=== PATIENT | female | born 1970 | race Caucasian/White ===

== ENCOUNTER → 2018-01-06 14:23 | Outpatient (CLI) | payer OTHER, SELFPAY ==
[2018-01-06 15:52] LABS: TSH (W/Ref FT4) 5.19 uIU/mL (0.358-3.74)
[2018-01-06 16:15] LABS: FREE T4 1.13 ng/dL (0.76-1.46)
== END ==
PROVIDERS: PCP Family Medicine; Visit Provider Nurse Practitioner Family
DX: N92.0 Excessive and frequent menstruation with regular cycle (principal)
CPT/HCPCS: 36415; 84439; 84443

== ENCOUNTER 2018-01-21 00:19 | Outpatient (CLI) | payer OTHER, SELFPAY ==
--- NOTE | 2018-01-21 14:50 | DI.US_ITS ---
SYMPTOMS/DIAGNOSIS: MENORRHAGIA, N92.0, VERY HEAVY AFTER 10 MONTHS OF NO BLEEDING PELVIC ULTRASOUND: Transabdominal and transvaginal exams were performed. The uterus measures 12 x 5.9 x 7.1 cm. The fundus of the uterus is not well seen on the transvaginal images. The endometrial stripe measures 8 mm in thickness. No fibroids are identified. Two small cysts are seen on the right ovary. The left ovary was not identified. A small amount of fluid is seen around the right ovary. There is no hydronephrosis. IMPRESSION: Limited visualization of the fundus of the uterus. Uterus is enlarged. No focal fibroid or focal endometrial abnormality is seen.
== END 2018-01-21 00:39 ==
PROVIDERS: PCP Family Medicine; Visit Provider Nurse Practitioner Family
DX: N92.0 Excessive and frequent menstruation with regular cycle (principal); N85.2 Hypertrophy of uterus
CPT/HCPCS: 76830; 76856

== ENCOUNTER 2018-02-14 12:24 | Outpatient (REF) | payer OTHER, SELFPAY ==
--- NOTE | 2018-02-14 09:50 | ENDOMET_PTH ---
PATIENT: Kemi Johnson LOC: [facility] U#:[id number] AGE/SX: 47/F ROOM: RE02/14/[address]: Evangelist Wing MD : 1970 BED: DIS: 02/14/2018 SPEC #: [id number] RECD: 02/14/18 12:57 STATUS: YESENIA REQ #: [id number] AMBER: 02/14/18 09:[address]: Evangelist Wing DEPT: Surgical Specimen RECD BY: Cindy Gordon ENTERED: 02/14/18 12:58 SP TYPE: Endomet OTHR DR: Elham Boyd MD Tissues: 1 - ENDOMETRIUM BX/KIERRA Procedures: GROSS AND MICRO LEVEL 4 Comments: [id number]
== END 2018-02-14 12:44 ==
LOC: LBN 12:24
PROVIDERS: PCP Family Medicine; Visit Provider Obstetrics & Gynecology
DX: N92.0 Excessive and frequent menstruation with regular cycle (principal)
CPT/HCPCS: 88305

== ENCOUNTER 2018-03-24 07:41 | Outpatient (CLI) | payer OTHER, SELFPAY ==
[2018-03-24 08:45] LABS: Iron 85 ug/dL (50-175)
[2018-03-24 08:54] LABS: Ferritin 72 ng/mL (8-388); TSH 4.22 uIU/mL (0.358-3.74)
== END 2018-03-24 08:01 ==
PROVIDERS: PCP Family Medicine; Visit Provider Family Medicine
DX: E03.9 Hypothyroidism, unspecified (principal); G25.81 Restless legs syndrome
CPT/HCPCS: 36415; 82728; 83540; 84443

== ENCOUNTER 2018-06-28 11:08 | Outpatient (CLI) | payer OTHER, SELFPAY ==
[2018-06-28 16:04] LABS: TSH 0.37 uIU/mL (0.358-3.74)
== END 2018-06-28 11:28 ==
PROVIDERS: PCP Family Medicine; Visit Provider Family Medicine
DX: E03.9 Hypothyroidism, unspecified (principal)
CPT/HCPCS: 36415; 84443

== ENCOUNTER 2019-03-13 16:28 | Outpatient (REF) | payer OTHER, SELFPAY ==
--- NOTE | 2019-03-13 15:00 | PAPFT_PTH ---
PATIENT: Kemi Johnson LOC: [facility] U#:[id number] AGE/SX: 48/F ROOM: RE03/13/[address]: Elham Boyd MD : 1970 BED: DIS: 03/13/2019 SPEC #: [id number] RECD: 03/14/19 12:53 STATUS: YESENIA REBrian #: [id number] AMBER: 03/13/19 15:[address]: Elham Boyd DEPT: [facility] Cytology RECD BY: Cindy Gordon Tissues: 1 - CX/ENDOCX FOR PAP SMEARS Procedures: PAP THIN PREP/UVM Screening HPV DNA PROBE Comments: [id number]
== END 2019-03-13 16:48 ==
LOC: LBN 16:28
PROVIDERS: PCP Family Medicine; Visit Provider Family Medicine
DX: Z12.4 Encounter for screening for malignant neoplasm of cervix (principal); Z11.51 Encounter for screening for human papillomavirus (HPV)
CPT/HCPCS: 88142; 87624

== ENCOUNTER 2019-03-15 02:33 | Outpatient (CLI) | payer OTHER, SELFPAY ==
[2019-03-15 09:52] LABS: ALT 77 U/L (14-59); AST 36 U/L (15-37); Albumin 3.8 g/dL (3.4-5.0); Alkaline Phosphatase 80 U/L (46-116); Anion Gap 8.8 mmol/L (3-11); BUN 13 mg/dL (7-18); Bilirubin, Total 0.7 mg/dL (0.2-1.0); CO2 29.2 mmol/L (21.0-32.0); CREATININE 0.81 mg/dL (0.55-1.02); Calcium 8.8 mg/dL (8.5-10.1); Calculated LDL 93 mg/dL; Chloride 104 mmol/L (98-107); Cholesterol 152 mg/dL (50-200); Glucose 99 mg/dL (70-100); HDL Cholesterol 42 mg/dL (40-60); Potassium 4.1 mmol/L (3.5-5.1); Sodium 142 mmol/L (136-145); TSH 1.47 uIU/mL (0.36-3.74); Total Protein 7.3 g/dL (6.4-8.2); Triglyceride 89 mg/dL (30-150)
== END 2019-03-15 02:53 ==
PROVIDERS: PCP Family Medicine; Visit Provider Family Medicine
DX: E03.9 Hypothyroidism, unspecified (principal); R03.0 Elevated blood-pressure reading, without diagnosis of hypertension; Z13.220 Encounter for screening for lipoid disorders
CPT/HCPCS: 36415; 80053; 80061; 84443

== ENCOUNTER 2019-04-11 01:01 | Outpatient (CLI) | payer OTHER, SELFPAY ==
--- NOTE | 2019-04-11 15:55 | DI.MAMMO_ITS ---
EXAM: MAMMO SCREENING CLINICAL HISTORY: screening Z12.39 TECHNIQUE: Mammograms were interpreted according to the usual protocol including computer analysis w Spot[employer] CAD system, tomosynthesis and C-view imaging. COMPARISON: No 2012 through 2016. FINDINGS: The breasts are composed of scattered fibroglandular densities, breast density, category B. An islan d of breast tissue is again noted in the upper outer quadrant of the right breast. No suspicious mas ses or suspicious microcalcifications are seen. Patient is noted to be status post breast reduction. IMPRESSION: BI-RADS category 2, negative mammogram with benign findings. Yearly screening mammography is recomme nded. BI-RADS Cat 2 - Benign Findings. Breast Density - Category B - Scattered areas of fibroglandular density.
== END 2019-04-11 01:21 ==
PROVIDERS: PCP Family Medicine; Visit Provider Family Medicine
DX: Z12.31 Encounter for screening mammogram for malignant neoplasm of breast (principal)
CPT/HCPCS: 77063; 77067

== ENCOUNTER 2020-08-02 02:17 | Outpatient (CLI) | payer OTHER, SELFPAY ==
[2020-08-02 08:17] LABS: ALT 31 U/L (14-59); AST 17 U/L (15-37); Albumin 3.9 g/dL (3.4-5.0); Alkaline Phosphatase 80 U/L (46-116); Anion Gap 9.3 mmol/L (3-11); BUN 15 mg/dL (7-18); Bilirubin, Total 0.5 mg/dL (0.2-1.0); CO2 29.7 mmol/L (21.0-32.0); CREATININE 0.8 mg/dL (0.55-1.02); Calcium 8.9 mg/dL (8.5-10.1); Chloride 104 mmol/L (98-107); Glucose 114 mg/dL (74-106); Potassium 4.1 mmol/L (3.5-5.1); Sodium 143 mmol/L (136-145); TSH 0.45 uIU/mL (0.36-3.74); Total Protein 7.2 g/dL (6.4-8.2)
== END 2020-08-02 02:18 | disposition home or self-care (01) ==
LOC: LBO 02:17
PROVIDERS: PCP Family Medicine; Visit Provider Family Medicine
DX: E03.9 Hypothyroidism, unspecified (principal); R74.01 Elevation of levels of liver transaminase levels
CPT/HCPCS: 36415; 80053; 84443

== ENCOUNTER 2020-10-09 01:41 | Outpatient (CLI) | payer OTHER, SELFPAY ==
--- NOTE | 2020-10-09 08:45 | DI.MAMMO_ITS ---
Exam(s) MAMMO SCREENING EXAM: MAMMO SCREENING CLINICAL HISTORY: screening,z12.39 TECHNIQUE: Bilateral full field digital CC and MLO mammographic images were obtained with 3D tomosyn thesis and utilizing computer aided detection (CAD). COMPARISON: Available for comparison. FINDINGS: Masses/Architectural Distortion: None seen. Stable asymmetric breast tissue is seen in the upper oute r quadrant of the right breast. There is a stable asymmetric density in the outer central left breas t. Microcalcifications: No suspicious pleomorphic-type are seen. Skin Thickening/Nipple Retraction: None. IMPRESSION: 1. No significant interval change with no specific features of malignancy noted. 2. Unless there is more urgent need, screening mammography is recommended, as per [employer] guidelines. BI-RADS Category 2 - Benign Findings Breast Density - Category B - Scattered areas of fibroglandular density Breast density category C or D implies that the patient has dense breast tissue. Dense breast tissue is very common and is not abnormal but dense breast tissue can make it harder to find cancer on a ma mmogram. Also, dense breast tissue may increase their breast cancer risk. This information about the result of the mammogram report was provided to the patient to raise their awareness. Use this report when you speak with the patient about their risks for breast cancer, which includes their family hist ory. At that time, you may recommend for more screening tests (Ultrasound or MRI) as they might be us eful based on their risk. A negative radiographic report should not delay biopsy if a dominant or clinically suspicious mass is present. Up to ten percent of cancers are not identified on mammography. A negative report may reinforce clinical impression. Adenosis and dense breasts may obscure an underlying neoplasm. False positive reports average 6 to 10%. Patient will receive a letter notifying them of these results.
== END 2020-10-09 02:01 ==
PROVIDERS: PCP Family Medicine; Visit Provider Family Medicine
DX: Z12.31 Encounter for screening mammogram for malignant neoplasm of breast (principal)
CPT/HCPCS: 77063; 77067

== ENCOUNTER 2020-11-29 04:11 | Outpatient (CLI) | payer OTHER, SELFPAY ==
[2020-11-29 07:43] LABS: Hemoglobin A1C 5.5 % (<5.7)
[2020-11-29 08:24] LABS: Glucose 97 mg/dL (74-106)
== END 2020-11-29 04:12 | disposition home or self-care (01) ==
LOC: LBO 04:11
PROVIDERS: PCP Family Medicine; Visit Provider Family Medicine
DX: E11.65 Type 2 diabetes mellitus with hyperglycemia (principal)
CPT/HCPCS: 36415; 82947; 83036

== ENCOUNTER 2021-10-15 03:49 | Outpatient (CLI) | payer OTHER, SELFPAY ==
[2021-10-15 14:33] LABS: ALT 27 U/L (14-59); AST 7 U/L (15-37); Albumin 3.9 g/dL (3.4-5.0); Alkaline Phosphatase 76 U/L (46-116); Anion Gap 8.4 mmol/L (3-11); BUN 13 mg/dL (7-18); Bilirubin, Total 0.4 mg/dL (0.2-1.0); CO2 30.6 mmol/L (21.0-32.0); CREATININE 0.8 mg/dL (0.55-1.02); Calcium 8.9 mg/dL (8.5-10.1); Chloride 102 mmol/L (98-107); Glucose 89 mg/dL (74-106); Potassium 4.3 mmol/L (3.5-5.1); Sodium 141 mmol/L (136-145); TSH (W/Ref FT4) 1.35 uIU/mL (0.36-3.74); Total Protein 7.3 g/dL (6.4-8.2)
== END 2021-10-15 03:50 | disposition home or self-care (01) ==
LOC: LOS 03:49
DX: I10 Essential (primary) hypertension (principal); E03.9 Hypothyroidism, unspecified
CPT/HCPCS: 36415; 80053; 84443

== ENCOUNTER → 2021-11-13 01:18 | Outpatient (CLI) | payer OTHER, SELFPAY ==
--- NOTE | 2021-11-13 07:37 | DI.MAMMO_ITS ---
Exam(s) MAMMO SCREENING EXAM: MAMMO SCREENING CLINICAL HISTORY: screening,Z12.39. TECHNIQUE: Bilateral full field digital CC and MLO mammographic images were obtained with 3D tomosyn thesis and utilizing computer aided detection (CAD). COMPARISON: Prior mammograms were reviewed, the most recent being October 2020. FINDINGS: There are no new spiculated masses nor malignant appearing microcalcification groups. There is no significant architectural distortion nor skin thickening-retraction. IMPRESSION: No radiographic evidence of malignancy. BI-RADS Category 1 - Negative Breast Density - Category B - Scattered areas of fibroglandular density Breast density Category C or D implies that the patient has dense breast tissue. Dense breast tissue can make it harder to find cancer on a mammogram. Dense breast tissue is also associated with an incr eased risk of breast cancer. This information about the result of the mammogram report was provided to the patient to raise their awareness. Use this report when you speak with the patient about their risks for breast cancer, which includes their family history. At that time, you may recommend additional screening tests (Ultrasoun d or MRI) as these tests may add significant information. A negative radiographic report should not delay biopsy if a dominant or clinically suspicious mass is present. Up to ten percent of cancers are not identified on mammography. A negative report may reinforce clinical impression. Adenosis and dense breasts may obscure an underlying neoplasm. False positive reports average 6 to 10%. Patient will receive a letter notifying them of these results.
== END ==
PROVIDERS: PCP Nurse Practitioner; Visit Provider Nurse Practitioner
DX: Z12.31 Encounter for screening mammogram for malignant neoplasm of breast (principal)
CPT/HCPCS: 77063; 77067

== ENCOUNTER 2022-05-20 01:36 | Outpatient (CLI) | payer OTHER, SELFPAY ==
--- NOTE | 2022-05-20 14:27 | DI.RAD_ITS ---
Exam(s) XR HAND RT COMPLETE EXAM: XR HAND RT COMPLETE CLINICAL HISTORY: Increase in pain over the last few weeks,bilat thumb pain,m79.645,m79.644. TECHNIQUE: 2D digital imaging was performed. Three views. COMPARISON: No exams were available for comparison FINDINGS: BONES: No acute fracture is present. No bony destructive lesion is seen. JOINTS: No dislocation present. Mild narrowing and spurring at the 1st carpal metacarpal joint. Mi nimal degenerative changes of the interphalangeal joints of the fingers. SOFT TISSUE: Normal. IMPRESSION: Degenerative changes greatest at the 1st carpal metacarpal joint. DATA REPOSITORY: RADIATION DOSE DELIVERED:
--- NOTE | 2022-05-20 14:27 | DI.RAD_ITS ---
Exam(s) XR HAND LT COMPLETE EXAM: XR HAND LT COMPLETE CLINICAL HISTORY: Increase in pain over the last few weeks,bilat thumb pain, m79.644.m79.645. TECHNIQUE: 2D digital imaging was performed. Three views. COMPARISON: CR XR HAND RT COMPLETE from 05/20/2022 FINDINGS: BONES: No acute fracture is present. No bony destructive lesion is seen. JOINTS: No dislocation present. Mild narrowing of the 1st carpal metacarpal joint and mild periarti cular spurring. Minimal degenerative changes noted in the interphalangeal joints. SOFT TISSUE: Normal. IMPRESSION: Mild degenerative changes, greatest at the 1st carpal metacarpal joint. DATA REPOSITORY: RADIATION DOSE DELIVERED:
== END 2022-05-20 01:56 ==
LOC: DI 01:36
PROVIDERS: PCP Nurse Practitioner Family; Visit Provider Nurse Practitioner Family
DX: M18.0 Bilateral primary osteoarthritis of first carpometacarpal joints (principal)
CPT/HCPCS: 73130

== ENCOUNTER 2022-11-13 02:27 | Outpatient (CLI) | payer OTHER, SELFPAY ==
[2022-11-13 14:15] LABS: HCT 39.9 % (36.0-46.0); HGB 13.3 g/dL (11.2-15.7); MCH 29.1 pg (27.0-33.0); MCHC 33.3 % (32.0-36.0); MCV 87 fL (80-95); MPV 8.8 fL (8.0-11.0); Platelet Count 160 10^3/uL (130-400); RBC 4.57 10^6/uL (3.93-5.22); RDW 13.1 % (11.7-14.6); RDW-SD 41.6 fL; WBC 5.46 10^3/uL (4.4-10.8)
[2022-11-13 15:13] LABS: Anion Gap 11.2 mmol/L (3-11); BUN 18 mg/dL (7-18); CO2 27.8 mmol/L (21.0-32.0); Calcium 8.9 mg/dL (8.5-10.1); Chloride 108 mmol/L (98-107); Estimated GFR 67.36 (mL/min/1.73m2); Glucose 106 mg/dL (74-106); Potassium 3.7 mmol/L (3.5-5.1); Sodium 147 mmol/L (136-145); TSH 0.86 uIU/mL (0.36-3.74)
== END 2022-11-13 02:28 | disposition home or self-care (01) ==
PROVIDERS: PCP Nurse Practitioner Family; Visit Provider Nurse Practitioner Family
DX: Z00.00 Encounter for general adult medical examination without abnormal findings (principal); E03.9 Hypothyroidism, unspecified; I10 Essential (primary) hypertension; K90.0 Celiac disease
CPT/HCPCS: 36415; 80048; 85027; 84443

== ENCOUNTER 2023-09-14 07:22 | Day surgery (SDC) | payer OTHER, SELFPAY ==
[2023-09-14] VITALS (11 sets, daily range): BP systolic 104–170; BP diastolic 56–89; PULSE 86–94; RESP 11–16; TEMP 36.5–36.7; O2SAT 94–99; BMI 33.3
--- NOTE | 2023-09-14 07:18 | W.PM.DSUDISC ---
Date of service: 09/14/23 Time of Service: 07:18 Discharge Plan Disposition Patient Disposition: Home Condition: Good Discharge Details Reason For Visit: Trapezial Arthroplasty L Wrist Attending Provider: Zia Garrett Primary Care Provider: Sherry Marks Home Meds and New Rx's Prescriptions: New acetaminophen 500 mg tablet 1,000 mg PO TID Qty: 90 3RF ibuprofen 600 mg tablet 600 mg PO TID PRNQty: 90 3RF oxycodone 5 mg tablet 5 mg PO Q8H MDD 15mg PRN (Reason: pain) Qty: 10 0RF Continued lisinopril 10 mg tablet 10 mg PO DAILY Qty: 90 3RF levothyroxine [Levo-T] 100 mcg tablet 100 mcg PO DAILY Qty: 90 4RF darifenacin 15 mg tablet extended release 24 hr 15 mg PO DAILY Qty: 90 3RF Rx Instructions: take one tablet daily/administer with fluid bupropion HCl 300 mg tablet extended release 24 hr See Rx Instructions .ROUTE .COMPLEX Qty: 30 12RF Dose Instruction: TAKE ONE TABLET BY MOUTH EVERY MORNING Rx Instructions: TAKE ONE TABLET BY MOUTH EVERY MORNING Discharge Instructions Additional Instructions: Thumb CMC Discharge Instructions Activity: You should keep the hand/thumb elevated as much as possible for the first few days. You may use the other fingers as tolerated but avoid trying to do too much too soon. You may perform light activities with the splint in place. Dressing/Cast: Your splint should stay in place at all times. Do NOT get it wet. You may loosen the RYLAN wrap if you feel it is too tight and then rewrap more loosely. Medications: - You should take Tylenol and Ibuprofen for baseline pain control. - You have Oxycodone for breakthrough pain. - You may apply ice over the thumb. Follow-up: 10-14 days Referrals: Zia Garrett MD [ [facility] STAFF PHYSICIAN] - Equipment/Supplies: Splint Activity:: Elevate Remove Dressings/Wound Care:: Do Not Remove Shower/Bathe:: Cover Diet:: As Tolerated Discharge Orders Discharge Orders: Discharge Order (Routine); Ordered 09/14/23 Ordered By: Pankaj Recinos DS: Diagnosis Discharge Diagnosis (1) Osteoarthritis of carpometacarpal joint of left thumb: Status: Acute
[2023-09-14] MEDS: Acetaminophen 500 MG TAB 1000 MG PO (07:56)
[2023-09-14] MEDS: Lactated Ringers 1,000 ML 80 ML IV (07:57)
[2023-09-14] MEDS: Celecoxib 200 MG CAP 400 MG PO (07:57)
--- NOTE | 2023-09-14 08:02 | HPE_ITS ---
Assessment and Plan Assessment and plan (1) Osteoarthritis of carpometacarpal joint of right thumb: Status: Acute Assessment and plan: Kemi is a 52-year-old female who has arthritis of her right thumb CMC joint. Once again reviewed the procedure with her today. I discussed the risk to include bleeding, infection, pain, stiffness, damage to superficial nerves, damage to deep arteries, subsidence, failure of suture, need for repeat procedures. Despite these risk, she elects to proceed. She denies any new medical history and has no contraindications to proceeding today. Qualifiers: Osteoarthritis type: primary Qualified Code(s): M18.11 - Unilateral primary osteoarthritis of first carpometacarpal joint, right hand History of Present Illness History of Present Illness Chief Complaint: Right Thumb Pain Narrative: Kemi is a 52-year-old female who I have seen previously for right thumb CMC arthritis. Please see the previous office note for complete detailed history. He is here today for right thumb CMC arthroplasty, trapezial resection arthroplasty with suture suspension plasty. I previously reviewed this with her in the past in the office. She denies any significant changes to her medical h istory. She denies any new symptoms or new trauma. No chest pain or shortness of breath. Review of Systems All systems reviewed & are unremarkable except as noted in HPI and below PFSH All Active Problems (Updated 09/14/23 @ 08:03 by Zia Garrett MD) Osteoarthritis of carpometacarpal joint of left thumb (Acute) DEPO MEDROL 03/01/23 Osteoarthritis of carpometacarpal joint of right thumb (Acute) S/P Trapezial Arthroplasty: 09/14/2023 Bilateral thumb pain (Acute) Essential hypertension (Acute) Hypothyroidism (Acute) Celiac disease (Acute) 2010 [facility]/+ endomysial IgA Ab Medical History Depression Surgical History Reduction mammoplasty Family History Mother Skin cancer Leukemia Father Diabetes Essential hypertension Hyperlipidemia Skin cancer Brother No problems noted. Maternal Grandmother Lung cancer Son No problems noted. Son No problems noted. Daughter No problems noted. Social History Smoking/Tobacco Use Status: Never Second Hand Exposure: Yes Smoking risk assessment performed?: Yes Alcohol Intake: current Alcohol Intake frequency: a few times a month Alcohol type: hard liquor Drug use: Never Substance use type: does not use Caregiver/Support person: No Household members: spouse and children Housing: house Do you need help understanding health information?: Never Pets and animals: Yes Pets and animals: cat(s) and dog(s) Sexually active: Yes Do you think of yourself as: straight/heterosexual Current gender identity: female What is your relationship status?: How often do you talk on the phone with friends or family?: three or more times per week How often do you get together with friends or relatives?: once per week How often do you attend orthodoxy or samaritan services?: decline to answer Do you belong to any clubs or organized social groups?: no Panel score (0-1 are the most socially isolated patients): 2 What type of physical activity do you participate in: decline to answer Duration: < 15 minutes/day Frequency: decline to answer Liyah/Jewish: No preference Special liyah needs: No Seatbelt use: always Helmet use: Yes Helmet use: always Drive intox or ride w/intox bulk delivery driver: No Do you feel safe at home: Yes Do you feel safe in your relationship?: Yes Meds Allergies and Home Medications Allergies Allergy/AdvReac Type Severity Reaction Status Date / Time gluten Allergy Unknown Other (See Verified 09/14/23 07:29 Comment) Home Medications Medication Instructions Recorded Confirmed Type levothyroxine 100 mcg tablet 100 mcg PO DAILY #90 tabs 10/29/22 09/14/23 Rx (Levo-T) lisinopril 10 mg tablet 10 mg PO DAILY #90 tabs 10/29/22 09/14/23 Rx darifenacin 15 mg tablet,extended 15 mg PO DAILY #90 tabs 03/22/23 09/14/23 Rx release 24 hr bupropion HCl 300 mg 24 hr tablet, See Rx Instructions .Route 05/18/23 09/14/23 Rx extended release .COMPLEX #30 tabs acetaminophen 500 mg tablet 1,000 mg (2 x 500 mg) PO TID #90 09/14/23 Rx tabs ibuprofen 600 mg tablet 600 mg PO TID PRN #90 tabs 09/14/23 Rx oxycodone 5 mg tablet 5 mg PO Q8H PRN pain #10 tabs 09/14/23 Rx Exam Resp Auscultation: clear to auscultation bilaterally Cardio Rate: regular rate Rhythm: regular rhythm Results Last Vital Signs Temp 36.6 C 09/14/23 07:47 Pulse 94 H 09/14/23 07:47 Resp 16 09/14/23 07:47 BP 170/89 H 09/14/23 07:47 Pulse Ox 98 09/14/23 07:47
--- NOTE | 2023-09-14 08:23 | W.ANESPRE ---
General Info Date of Service Date Performed: 09/14/23 Height: 5 ft 6 in Weight: 93.6 kg Body Mass Index (BMI): 33.3 Surgical Procedure: Operation Date: 09/14/23 09:25 Proposed Procedure Side Surgeon p Thumb CMC Arthroplasty Right Zia Garrett MD Meds Allergies and Home Medications Allergies Allergy/AdvReac Type Severity Reaction Status Date / Time gluten Allergy Unknown Other (See Verified 09/14/23 07:29 Comment) Home Medication Medication Instructions Recorded levothyroxine 100 mcg tablet 100 mcg PO DAILY #90 tabs 10/29/22 (Levo-T) lisinopril 10 mg tablet 10 mg PO DAILY #90 tabs 10/29/22 darifenacin 15 mg tablet,extended 15 mg PO DAILY #90 tabs 03/22/23 release 24 hr bupropion HCl 300 mg 24 hr tablet, See Rx Instructions .Route 05/18/23 extended release .COMPLEX #30 tabs acetaminophen 500 mg tablet 1,000 mg (2 x 500 mg) PO TID #90 09/14/23 tabs ibuprofen 600 mg tablet 600 mg PO TID PRN #90 tabs 09/14/23 oxycodone 5 mg tablet 5 mg PO Q8H PRN pain #10 tabs 09/14/23 Current Visit Medications: Current Medications Generic Name Dose Route Start Last Admin Trade Name Freq PRN Reason Stop Dose Admin Acetaminophen 1,000 mg 09/14/23 06:00 09/14/23 07:56 Acetaminophen 500 Mg Tab PO 09/14/23 16:00 1,000 mg PREOP REINA Administration Acetaminophen 650 mg 09/14/23 07:17 Acetaminophen 325 Mg Tab PO 10/14/23 07:16 Q4H PRN PRN Celecoxib 400 mg 09/14/23 06:00 09/14/23 07:57 Celecoxib 200 Mg Cap PO 09/14/23 16:00 400 mg PREOP REINA Administration Ringer's Solution 1,000 mls @ 80 mls/hr 09/14/23 06:00 09/14/23 07:57 IV 10/13/23 23:59 80 mls/hr INFUSION REINA Administration Cefazolin Sodium/Dextrose 2 gm in 50 mls @ 100 mls/hr 09/14/23 08:16 Ancef Duplex IVPB 09/14/23 08:45 STAT STA IV Miscellaneous Supplies 1 each 09/14/23 06:00 Iv Access IV 10/13/23 23:59 DIRECTED REINA Oxycodone HCl 5 mg 09/14/23 07:17 Oxycodone 5 Mg Tab PO 10/14/23 07:16 Q3H PRN PRN Pain Sodium Chloride 0 ml 09/14/23 06:00 Normal Saline Flush 10 Ml Syr IV 10/13/23 23:59 PRN PRN Sodium Chloride 0 ml 09/14/23 06:00 Normal Saline 10 Ml Vial IJ 10/13/23 23:59 DIRECTED PRN Sterile Water 0 ml 09/14/23 06:00 Water,Injection,Sterile 10 Ml Vial IJ 10/13/23 23:59 DIRECTED PRN PFSH Active Problems Active Problems: Problem Status Onset Code 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 Osteoarthritis of carpometacarpal joint of left thumb M18.12 Osteoarthritis of carpometacarpal joint of right thumb M18.11 Bilateral thumb pain M79.644, M79.645 Essential hypertension I10 Hypothyroidism E03.9 Celiac disease K90.0 Medical History Medical History Depression Surgical History Surgical History Reduction mammoplasty Tobacco Smoking/Tobacco Use Status: Never Passive smoking exposure: Yes Second hand exposure: Yes Alcohol Alcohol Intake: current Alcohol intake frequency: a few times a month Alcohol type: hard liquor Substance Use Substance use: Never Substance use type: does not use Vital Signs and Lab Results Vital Signs Most Recent Vital Signs in EMR: Most Recent Vital Signs Temp Pulse Resp BP Pulse Ox 36.6 C 94 H 16 170/89 H 98 09/14/23 07:47 09/14/23 07:47 09/14/23 07:47 09/14/23 07:47 09/14/23 07:47 Lab Results Blood Type / Crossmatch: No Data to Display Complete Blood Count: No Data to Display Complete Metabolic Panel: No Data to Display Liver Function Panel: No Data to Display Coagulation Panel: No Data to Display Cardiac Panel: No Data to Display Arterial Blood Gas: No Data to Display Venous Blood Gas: No Data to Display Pancreas Panel: No Data to Display Thyroid Panel: No Data to Display Infectious Disease: No Data to Display Blood Cultures: No Data to Display Toxicology Panel: No Data to Display Panel: No Data to Display Anesthesia Assessment and Plan Anesthesia History Personal History: No History of Anesthesia Complications Family History: No Family History of Anesthesia Complications Exercise Tolerance Exercise Tolerance: Metabolic Equivalents>4 Pertinent Negatives Pertinent Negatives: No Symptoms of GERD (controlled with meds), No Major Cardiovascular Symptoms or Complaints, No Major Pulmonary Symptoms or Complaints and No History of CVA/TIA Cardiac & Pulmonary Exam Cardiac Exam: Normal S1/S2 Heart Sounds Pulmonary Exam: Clear Bilateral Breath Sounds Implantable Cardiac Device Does patient have a Pacemaker or an ICD?: No Airway Exam Known Difficult Airway: No Mallampati Class: 2 Mouth Opening: Normal (> 3cm) Thyromental Distance: Greater than 3 cm Neck Range of Motion: Full ROM Neck Circumference: Normal Teeth Condition: Normal Dentition ASA Classification ASA Score: ASA 2 Emergency Case?: No NPO Status NPO Status: NPO Clears >2 hours, Solids >8 hours Status Status: Not Relevant due to Medical History (post menses greater than one year) Anesthesia Plan Resuscitation Status: Full Code Anesthesia Technique: General Anesthesia Airway Planned: LMA Monitors Used: Standard Monitors
[2023-09-14] MEDS: ceFAZolin 2 GM/50 ML BAG IVPB (09:10)
--- NOTE | 2023-09-14 09:40 | DI.RAD_ITS ---
Exam(s) XR HAND RT LIMITED EXAM: XR HAND RT LIMITED CLINICAL HISTORY: Osteoarthritis of carpometacarpal joint of r thumb TECHNIQUE: 2D and realtime digital imaging was performed. CONTRAST MATERIAL: Refer to procedure report. COMPARISON: CR XR HAND LT COMPLETE from 05/20/2022 FINDINGS: Fluoroscopy was provided for Dr. Garrett. Please refer to the procedure report for complete detail sJose Elias Ngor=0.01 mGy IMPRESSION: RADIATION DOSE DELIVERED: 0.0 0.0 0
[2023-09-14] MEDS: Bupivacaine 0.25% Pres-Free 30 ML VIAL (10:24)
--- NOTE | 2023-09-14 10:26 | W.PM.OP ---
Date of service: 09/14/23 Time of Service: 09:15 Operative Note Operative Note DATE OF PROCEDURE: 09/14/23 PRE-OP DIAGNOSIS: Right Thumb CMC Arthritis POST-OP DIAGNOSIS: same PROCEDURE: Right trapezial resection arthroplasty with suture suspensionplasty SURGEON: Zia Garrett VOYAGE MANAGEMENT SYSTEM OPERATOR: Pankaj Recinos ANESTHESIA TYPE: General LMA/ETT Refer to Anesthesia Record ESTIMATED BLOOD LOSS: 0 PATHOLOGY: none sent TOURNIQUET TIME: 45 COMPLICATIONS: None Patient was transported to: PACU Patient's condition: stable Indications: Kemi is a 52 year old feamle who has had symptoms of thumb CMC arthritis with pain and decreased mobility. Nonoperative treatment options had been trialed. Given their failure, I offered operative intervention. I reviewed the technical details. I reviewed the risk of the procedure to include bleeding, infection, pain, stiffness, instability, subsidence, damage to neighboring arteries, damage to the superficial radial nerve, and weakness. Despite these risks, the patient elected to proceed. Findings: There is notable arthrosis between the trapezium and the first metacarpal. Procedure Description: Kemi was greeted in the preoperative holding area. Name and surgical site were confirmed. The history and physical was completed. The consent was reviewed the patient and signed. She was taken back to the operating room. The patient was placed and monitored anesthesia care. The right was then prepped with ChloraPrep and draped in a standard fashion after a nonsterile tourniquet was placed high up onto the arm. Prophylactic antibiotics in the form of cefazolin were administered. A timeout was performed for safe surgery. The surgical site was drawn on the skin overlying the dorsal radial border of the wrist. The planned surgical field was anesthetized with 0.25% bupivacaine. The limb was exsanguinated and the tourniquet was inflated where it stayed for 45 minutes. A 3 cm incision was made longitudinally over the radial wrist from the level of the radial styloid to just past the base of the first metacarpal. The skin was incised only. The deep tissue and subcutaneous fat was dissected with a tenotomy scissors trying to protect branches of the superficial radial nerve. Any branches that were identified were retracted out of the way. The first compartment extensor tendons were then identified and the first extensor compartment was released under direct visualization. The interval between EPL and EPB was identified. The base of the first metacarpal was palpated. A needle was placed into the joint between the first metacarpal and the trapezium. A single x-ray was used to confirm appropriate positioning. The capsule of the trapezium was then incised. The radial border of the bone was identified. Soft tissues around trapezium were dissected bluntly to allow relaxation of vital arterial structures traversing the trapezium. Using a [place] blade the capsule was elevated off the trapezium in a subperiosteal fashion. Once it appeared to have all the capsular attachments released, the trapezium was then removed using a rongeur. The wound was inspected to make sure all portions of the trapezium were removed. The wound was then thoroughly irrigated. Using a 2-0 FiberWire then performed a suture suspensionplasty. This was done by incorporating capsule and attachments of the APL at the base of the first metacarpal and creating a sling connected to the deep flexor carpi radialis tendon seen traversing deep within the wound towards the second metacarpal. This was done twice to create a crossing network of 2-0 suture. This was then tied overlying the base of the first metacarpal making sure not to over tighten and hourglass the tendons. This provided support to the first metacarpal to prevent any excessive subsidence. The tourniquet was then released. There is no significant bleeding. The capsule of the trapezium was then reapproximated with a 2-0 Vicryl. The skin was closed with subcuticular 3-0 Vicryl. The hand was dressed with 4 x 4's, Kerlex and RYLAN to create a soft, thumb spica splint. All counts were correct. Patient was transferred back to PACU in a stable condition.
[2023-09-14] MEDS: fentaNYL 100 MCG/2 ML VIAL IVP ×2 (11:03→11:15)
--- NOTE | 2023-09-14 12:40 | W.ANESPOSTOP ---
Postoperative Evaluation Date, Time and Location Date Performed: 09/14/23 Time Performed: 12:21 Patient Location: Day Surgery Unit Vital Signs Most Recent Imported Vital Signs: Most Recent Vital Signs Temp Pulse Resp BP Pulse Ox 36.6 C 87 16 146/78 H 97 09/14/23 12:00 09/14/23 12:00 09/14/23 12:00 09/14/23 12:00 09/14/23 12:00 Pain Score Most Recent Pain Score: Most Recent Pain Score Pain Level 1 09/14/23 12:00 Assessment Mental Status: Awake (Alert & Oriented to Patient Baseline) Airway and Respiratory Function: Patent airway with normal (patient baseline) respiratory exam Cardiovascular Function: Hemodynamically Stable Hydration Status: Adequately Hydrated Nausea & Vomiting: No Nausea or Vomiting Pain: Pain is tolerable per patient Peripheral Nerve Block: Patient did not receive a nerve block
== END 2023-09-14 07:23 | disposition home or self-care (01) ==
LOC: SUR 07:23
PROVIDERS: PCP Nurse Practitioner Family; Visit Provider Student in an Organized Health Care Education/Training Program
PROC: (CPT 25447; principal; 2023-09-14 09:15)
DX: M18.11 Unilateral primary osteoarthritis of first carpometacarpal joint, right hand (principal); E03.9 Hypothyroidism, unspecified; I10 Essential (primary) hypertension; K90.0 Celiac disease
CPT/HCPCS: 25447; 76000; 73120; J0665; J0690; J1100; J1885; J2001; J2405; J2704; J3010

== ENCOUNTER 2023-11-04 01:27 | Outpatient (CLI) | payer OTHER, SELFPAY ==
[2023-11-04 13:29] LABS: Hemoglobin A1C 5.4 % (<5.7)
[2023-11-04 13:40] LABS: Anion Gap 6.8 mmol/L (3-11); BUN 14 mg/dL (7-18); CO2 30.2 mmol/L (21.0-32.0); CREATININE 0.9 mg/dL (0.55-1.02); Calcium 9.3 mg/dL (8.5-10.1); Chloride 106 mmol/L (98-107); Estimated GFR 75.97 (mL/min/1.73m2); Glucose 114 mg/dL (74-106); Potassium 4.3 mmol/L (3.5-5.1); Sodium 143 mmol/L (136-145); TSH (W/Ref FT4) 0.89 uIU/mL (0.36-3.74)
== END 2023-11-04 01:28 | disposition home or self-care (01) ==
LOC: LBO 01:27
PROVIDERS: PCP Nurse Practitioner Family; Visit Provider Nurse Practitioner Family
DX: I10 Essential (primary) hypertension (principal); E03.9 Hypothyroidism, unspecified; Z00.00 Encounter for general adult medical examination without abnormal findings; F32.A Depression, unspecified
CPT/HCPCS: 36415; 80048; 83036; 84443

== ENCOUNTER → 2023-11-05 00:57 | Outpatient (CLI) | payer OTHER, SELFPAY ==
--- NOTE | 2023-11-05 07:30 | DI.MAMMO_ITS ---
Exam(s) MAMMO SCREENING EXAM: MAMMO SCREENING CLINICAL HISTORY: screening,z12.39 TECHNIQUE: Bilateral full field digital CC and MLO mammographic images were obtained with 3D tomosyn thesis and utilizing computer aided detection (CAD). COMPARISON: Available for comparison. FINDINGS: Masses/Architectural Distortion: None seen. Microcalcifications: No suspicious pleomorphic-type are seen. Skin Thickening/Nipple Retraction: None. IMPRESSION: 1. No significant interval change with no specific features of malignancy noted. 2. Unless there is more urgent need, screening mammography is recommended, as per [employer] guidelines. BI-RADS Category 1 - Negative Breast Density - Category B - Scattered areas of fibroglandular density Breast density category C or D implies that the patient has dense breast tissue. Dense breast tissue is very common and is not abnormal but dense breast tissue can make it harder to find cancer on a ma mmogram. Also, dense breast tissue may increase their breast cancer risk. This information about the result of the mammogram report was provided to the patient to raise their awareness. Use this report when you speak with the patient about their risks for breast cancer, which includes their family hist ory. At that time, you may recommend for more screening tests (Ultrasound or MRI) as they might be us eful based on their risk. A negative radiographic report should not delay biopsy if a dominant or clinically suspicious mass is present. Up to ten percent of cancers are not identified on mammography. A negative report may reinforce clinical impression. Adenosis and dense breasts may obscure an underlying neoplasm. False positive reports average 6 to 10%. Patient will receive a letter notifying them of these results.
== END ==
PROVIDERS: PCP Nurse Practitioner Family; Visit Provider Nurse Practitioner Family
DX: Z12.39 Encounter for other screening for malignant neoplasm of breast (principal)
CPT/HCPCS: 77063; 77067

== ENCOUNTER 2024-01-19 15:51 | Outpatient (REF) | payer OTHER, SELFPAY ==
--- NOTE | 2024-01-19 15:30 | PAPFT_PTH ---
PATIENT: Kemi Johnson LOC: [facility] U#:[id number] AGE/SX: 53/F ROOM: RE01/19/[address]: Berna Vaughn NP : 1970 BED: DIS: 01/19/2024 SPEC #: [id number] RECD: 01/19/24 17:55 STATUS: YESENIA REQ #: [id number] AMBER: 01/19/24 15:[address]: Berna Vaughn NP DEPT: [facility] Cytology RECD BY: Cindy Gordon ENTERED: 01/19/24 17:56 SP TYPE: PAPFT OTHR DR: Sherry Marks NP Tissues: 1 - CX/ENDOCX FOR PAP SMEARS Procedures: PAP THIN PREP/[facility] Screening HPV DNA PROBE Comments: [id number] (HPV 16 & 18/45)
== END 2024-01-19 15:52 | disposition home or self-care (01) ==
LOC: LBN 15:51
PROVIDERS: PCP Nurse Practitioner Family; Visit Provider Nurse Practitioner Women's Health
DX: Z01.419 Encounter for gynecological examination (general) (routine) without abnormal findings (principal); N81.4 Uterovaginal prolapse, unspecified; Z12.4 Encounter for screening for malignant neoplasm of cervix
CPT/HCPCS: 88142; 87624

== ENCOUNTER 2024-02-25 00:29 | Outpatient (CLI) | payer OTHER, SELFPAY ==
--- NOTE | 2024-02-25 06:15 | DI.RAD_ITS ---
Exam(s) XR CERVICAL SP COMP W FLEX/EXT EXAM: XR CERVICAL SP COMP W FLEX/EXT CLINICAL HISTORY: neck pain after fall 08/31,m54.2. TECHNIQUE: 2D digital imaging was performed. Eight images were obtained. AP, odontoid, lateral, flex ion, extension and bilateral oblique images were obtained. COMPARISON: No exams were available for comparison FINDINGS: The odontoid is intact. The lateral masses are well aligned. There is normal alignment of the cervi otis spine. Mild disc space narrowing is seen at C5-C6. Osteophytes are seen at the C5-6 and C6-C7 le donna. Degenerative changes of the facets are seen. No acute fracture or subluxation is present. Ther e is mild neural foraminal narrowing on the right at C5-C6 and on the left at C3-C4 and C4-C5. No si gnificant subluxation is seen with flexion or extension. The cervical thoracic junction is well main tained. The prevertebral soft tissues are unremarkable. Lung apices are clear. IMPRESSION: [id number] degenerative changes seen in the cervical spine as described above. DATA REPOSITORY: RADIATION DOSE DELIVERED:
== END 2024-02-25 00:49 ==
LOC: DI 00:29
PROVIDERS: PCP Nurse Practitioner Family; Visit Provider Nurse Practitioner Family
DX: M50.322 Other cervical disc degeneration at C5-C6 level (principal)
CPT/HCPCS: 72052

== ENCOUNTER 2024-05-16 11:43 | Day surgery (SDC) | payer OTHER, SELFPAY ==
[2024-05-16] VITALS (21 sets, daily range): BP systolic 130–147; BP diastolic 85–102; PULSE 88–101; RESP 11–20; TEMP 36.3–36.7; O2SAT 84–96; BMI 32.5
--- NOTE | 2024-05-16 10:33 | W.PM.DSUDISC ---
Date of service: 05/16/24 Discharge Plan Disposition Patient Disposition: Home Condition: Good Discharge Details Reason For Visit: Left CMC DJD Attending Provider: Zia Garrett Primary Care Provider: Shrery Marks Home Meds and New Rx's Prescriptions: New acetaminophen 500 mg tablet 500 mg PO Q6H PRN (Reason: pain) Qty: 60 2RF oxycodone 5 mg tablet 5 mg PO Q6H PRNQty: 6 0RF Rx Instructions: Take one tablet up to every 6 hours as needed for severe postoperative pain Continued lisinopril 20 mg tablet 20 mg PO DAILY Qty: 90 3RF levothyroxine [Levo-T] 100 mcg tablet 100 mcg PO DAILY Qty: 90 4RF bupropion HCl 300 mg tablet extended release 24 hr See Rx Instructions .ROUTE .COMPLEX Qty: 30 12RF Dose Instruction: TAKE ONE TABLET BY MOUTH EVERY MORNING Rx Instructions: TAKE ONE TABLET BY MOUTH EVERY MORNING darifenacin 15 mg tablet extended release 24 hr 15 mg PO DAILY Qty: 90 3RF Rx Instructions: take one tablet daily/administer with fluid ibuprofen 600 mg tablet 600 mg PO TID PRNQty: 90 3RF Discharge Instructions Additional Instructions: Thumb CMC Discharge Instructions Activity: You should keep the hand/thumb elevated as much as possible for the first few days. You may use the other fingers as tolerated but avoid trying to do too much too soon. You may perform light activities with the splint in place. Dressing/Cast: Your splint should stay in place at all times. Do NOT get it wet. You may loosen the RYLAN wrap if you feel it is too tight and then rewrap more loosely. Medications: - You should take Tylenol and Ibuprofen for baseline pain control. - You have Oxycodone for breakthrough pain. - You may apply ice over the thumb. Follow-up: 10-14 days Referrals: Zia Garrett MD [ [facility] STAFF PHYSICIAN] - Equipment/Supplies: Splint Activity:: Elevate Remove Dressings/Wound Care:: Do Not Remove Shower/Bathe:: Cover Diet:: As Tolerated Discharge Orders Discharge Orders: Discharge Order (Routine); Ordered 05/16/24 Ordered By: Elyssa Laguerre
[2024-05-16] MEDS: Acetaminophen 500 MG TAB 1000 MG PO (12:10)
[2024-05-16] MEDS: Celecoxib 200 MG CAP 400 MG PO (12:10)
[2024-05-16] MEDS: Lactated Ringers 1,000 ML 80 ML IV (12:18)
--- NOTE | 2024-05-16 12:29 | W.PREOPHP ---
Assessment and Plan Assessment and plan (1) Osteoarthritis of carpometacarpal joint of left thumb: Status: Acute Assessment and plan: Kemi is a 53-year-old female who has known arthritis of the left thumb CMC joint. She has had previous injections and other nonoperative treatments. She had a successful right thumb CMC arthroplasty, trapezial resection. She is here today for the left thumb. She has had no medical changes. I discussed the surgery with her. I reviewed the technical details. I discussed the time for rehabilitation. I reviewed the risk to include bleeding, infection, pain, stiffness, damage nerves and vessels, damage to muscles and tendons, thumb subsidence, weakness, need for repeat procedures. Despite these risk, she elects to proceed. History of Present Illness History of Present Illness Chief Complaint: Left Thumb CMC Arthroplasty Narrative: Kemi is a 53-year-old female who has known arthritis about the left thumb CMC joint. She been seen for both of her thumbs in the past. She had right thumb CMC arthroplasty last year and has done very well from that. She has had persistent pain about the left side would like to have this definitively fixed as well. She has had no changes to her medical profile. No new symptoms. No reported numbness or tingling. No chest pain or shortness of breath. Review of Systems All systems reviewed & are unremarkable except as noted in HPI and below PFSH All Active Problems Neck pain on left side (Acute) Cystocele with prolapse (Acute) Moderate Osteoarthritis of carpometacarpal joint of left thumb (Acute) DEPO MEDROL 03/01/23 Osteoarthritis of carpometacarpal joint of right thumb (Acute) S/P Trapezial Arthroplasty: 09/14/2023 Bilateral thumb pain (Acute) Essential hypertension (Acute) Hypothyroidism (Acute) Celiac disease (Acute) [facility] endomysial IgA Ab Medical History Depression Surgical History Reduction mammoplasty Family History Mother Skin cancer Leukemia Father Diabetes Essential hypertension Hyperlipidemia Skin cancer Brother No problems noted. Maternal Grandmother Lung cancer Son No problems noted. Son No problems noted. Daughter No problems noted. Social History Smoking/Tobacco Use Status: Never Second Hand Exposure: Yes Smoking risk assessment performed?: Yes Alcohol Intake: current Alcohol Intake frequency: a few times a month Alcohol type: hard liquor Drug use: Never Substance use type: does not use Caregiver/Support person: No Household members: spouse and children Housing: house Do you need help understanding health information?: Never Pets and animals: Yes Pets and animals: cat(s) and dog(s) Sexually active: Yes Do you think of yourself as: straight/heterosexual Current gender identity: female What is your relationship status?: How often do you talk on the phone with friends or family?: three or more times per week How often do you get together with friends or relatives?: once per week How often do you attend scientology or latter day services?: decline to answer Do you belong to any clubs or organized social groups?: no Panel score (0-1 are the most socially isolated patients): 2 What type of physical activity do you participate in: decline to answer Duration: < 15 minutes/day Frequency: decline to answer Liyah/Christianity: No preference Special liyah needs: No Seatbelt use: always Helmet use: Yes Helmet use: always Drive intox or ride w/intox driver retraining instructor: No Do you feel safe at home: Yes Do you feel safe in your relationship?: Yes Female Reproductive History Menstrual Age of Menarche: 11 Menopause type: natural (November 2019) History History 4 Para 3 Hx # Term Pregnancies Multiple births Hx # Pregnancies Ectopic pregnancies AB induced Hx Number of Living Children AB spontaneous 1 Past Pregnancies Del. Date GA/Weeks # Preg Succ Route Wgt Sex Labor Lgth Anesthesia Location Prov Complic 12/10/89 No Yes vaginal Female 05/06/91 No Yes vaginal Male 02/15/95 42 No Yes vaginal Male Meds Allergies and Home Medications Allergies Allergy/AdvReac Type Severity Reaction Status Date / Time gluten Allergy Unknown Other (See Verified 05/16/24 12:01 Comment) Home Medications ?Medication ?Instructions ?Recorded ?Confirmed ?Type bupropion HCl 300 mg 24 hr tablet, See Rx Instructions .Route 05/18/23 05/16/24 Rx extended release .COMPLEX #30 tabs ibuprofen 600 mg tablet 600 mg PO TID PRN #90 tabs 09/14/23 05/12/24 Rx levothyroxine 100 mcg tablet 100 mcg PO DAILY #90 tabs 11/02/23 05/16/24 Rx (Levo-T) lisinopril 20 mg tablet 20 mg PO DAILY #90 tabs 11/02/23 05/16/24 Rx darifenacin 15 mg tablet,extended 15 mg PO DAILY #90 tabs 03/20/24 05/16/24 Rx release 24 hr Exam Const General: cooperative, healthy appearing, comfortable and no acute distress Nutritional Appearance: average body habitus Resp Effort & Inspection: normal respiratory effort Auscultation: clear to auscultation bilaterally Cardio Rate: regular rate Rhythm: regular rhythm Extrem Other: Prominent thumb metacarpal base. Positive grind test. Active EPL and FPL function. Sensation intact to light touch of the median, radial, ulnar nerve. Results Last Vital Signs Temp 36.7 C 05/16/24 12:04 Pulse 96 H 05/16/24 12:04 Resp 20 05/16/24 12:04 BP 144/85 H 05/16/24 12:04 Pulse Ox 96 05/16/24 12:04
--- NOTE | 2024-05-16 13:33 | ANES.PREOP_ITS ---
General Info Date of Service Date Performed: 05/16/24 Height: 5 ft 6 in Weight: 91.4 kg Body Mass Index (BMI): 32.5 Surgical Procedure: Operation Date: 05/16/24 13:55 Proposed Procedure Side Surgeon p Thumb CMC Arthroplasty Left Zia Garrett MD Actual Procedure Side Surgeon p Thumb CMC Arthroplasty Left Zia Garrett MD Pre-Op Diagnosis Post-Op Diagnosis Osteoarthritis of carpometacarpal joint of left thumb Meds Allergies and Home Medications Allergies Allergy/AdvReac Type Severity Reaction Status Date / Time gluten Allergy Unknown Other (See Verified 05/16/24 12:01 Comment) Home Medication ?Medication ?Instructions ?Recorded bupropion HCl 300 mg 24 hr tablet, See Rx Instructions .Route 05/18/23 extended release .COMPLEX #30 tabs ibuprofen 600 mg tablet 600 mg PO TID PRN #90 tabs 09/14/23 levothyroxine 100 mcg tablet 100 mcg PO DAILY #90 tabs 11/02/23 (Levo-T) lisinopril 20 mg tablet 20 mg PO DAILY #90 tabs 11/02/23 darifenacin 15 mg tablet,extended 15 mg PO DAILY #90 tabs 03/20/24 release 24 hr Current Visit Medications: Current Medications Generic Name Dose Route Start Last Admin Trade Name Freq PRN Reason Stop Dose Admin Acetaminophen 1,000 mg 05/16/24 06:00 05/16/24 12:10 Acetaminophen 500 Mg Tab PO 05/16/24 23:59 1,000 mg PREOP REINA Administration Acetaminophen 650 mg 05/16/24 10:34 Acetaminophen 325 Mg Tab PO 06/15/24 10:33 Q4H PRN PRN Celecoxib 400 mg 05/16/24 06:00 05/16/24 12:10 Celecoxib 200 Mg Cap PO 05/16/24 23:59 400 mg PREOP REINA Administration Ringer's Solution 1,000 mls @ 80 mls/hr 05/16/24 06:00 05/16/24 12:18 IV 05/16/24 23:59 80 mls/hr INFUSION REINA Administration IV Miscellaneous Supplies 1 each 05/16/24 06:00 Iv Access IV 05/16/24 23:59 DIRECTED REINA Oxycodone HCl 5 mg 05/16/24 10:34 Oxycodone 5 Mg Tab PO 06/15/24 10:33 Q3H PRN PRN Pain Sodium Chloride 0 ml 05/16/24 06:00 Normal Saline Flush 10 Ml Syr IV 05/16/24 23:59 PRN PRN Sodium Chloride 0 ml 05/16/24 06:00 Normal Saline 10 Ml Vial IJ 05/16/24 23:59 DIRECTED PRN Sterile Water 0 ml 05/16/24 06:00 Water,Injection,Sterile 10 Ml Vial IJ 05/16/24 23:59 DIRECTED PRN PFSH Active Problems Active Problems: Problem Status Onset Code Neck pain on left side Acute M54.2 Cystocele with prolapse Acute N81.4 Extensor intersection syndrome of right wrist Resolved M65.831 Osteoarthritis of carpometacarpal joint of left thumb Acute M18.12 Osteoarthritis of carpometacarpal joint of right thumb Acute M18.11 Bilateral thumb pain Acute M79.644, M79.645 Essential hypertension Acute I10 Hypothyroidism Acute E03.9 Celiac disease Acute K90.0 Medical History Medical History Depression Surgical History Surgical History Reduction mammoplasty Tobacco Smoking/Tobacco Use Status: Never Passive smoking exposure: Yes Second hand exposure: Yes Alcohol Alcohol Intake: current Alcohol intake frequency: a few times a month Alcohol type: hard liquor Substance Use Substance use: Never Substance use type: does not use Prental History History 4 Para 3 Hx # Term Pregnancies Multiple births Hx # Pregnancies Ectopic pregnancies AB induced Hx Number of Living Children AB spontaneous 1 Past Pregnancies Del. Date GA/Weeks # Preg Succ Route Wgt Sex Labor Lgth Anesth esia Location Prov [facility] 12/10/89 No Yes vaginal Female 05/06/91 No Yes vaginal Male 02/15/95 42 No Yes vaginal Male Vital Signs and Lab Results Vital Signs Most Recent Vital Signs in EMR: Most Recent Vital Signs Temp Pulse Resp BP Pulse Ox 36.7 C 96 H 20 144/85 H 96 05/16/24 12:04 05/16/24 12:04 05/16/24 12:04 05/16/24 12:04 05/16/24 12:04 Lab Results Blood Type / Crossmatch: No Data to Display Complete Blood Count: No Data to Display Complete Metabolic Panel: No Data to Display Liver Function Panel: No Data to Display Coagulation Panel: No Data to Display Cardiac Panel: No Data to Display Arterial Blood Gas: No Data to Display Venous Blood Gas: No Data to Display Pancreas Panel: No Data to Display Thyroid Panel: No Data to Display Infectious Disease: No Data to Display Blood Cultures: No Data to Display Toxicology Panel: No Data to Display Panel: No Data to Display Anesthesia Assessment and Plan Anesthesia History Personal History: No History of Anesthesia Complications Family History: No Family History of Anesthesia Complications Exercise Tolerance Exercise Tolerance: Metabolic Equivalents>4 Pertinent Negatives Pertinent Negatives: No Major Cardiovascular Symptoms or Complaints, No Major Pulmonary Symptoms or Complaints and No History of CVA/TIA Cardiac & Pulmonary Exam Cardiac Exam: Normal S1/S2 Heart Sounds Pulmonary Exam: Clear Bilateral Breath Sounds Implantable Cardiac Device Does patient have a Pacemaker or an ICD?: No Airway Exam Known Difficult Airway: No Mallampati Class: 2 Mouth Opening: Normal (> 3cm) Thyromental Distance: Greater than 3 cm Neck Range of Motion: Full ROM Neck Circumference: Normal Teeth Condition: Normal Dentition ASA Classification ASA Score: ASA 2 Emergency Case?: No NPO Status NPO Status: NPO Clears >2 hours, Solids >8 hours Status Status: Not Relevant due to Medical History Anesthesia Plan Resuscitation Status: Full Code Anesthesia Technique: General Anesthesia Airway Planned: LMA Monitors Used: Standard Monitors
[2024-05-16] MEDS: Bupivacaine 0.25% Pres-Free 30 ML VIAL (14:45)
--- NOTE | 2024-05-16 15:11 | DI.RAD_ITS ---
Exam(s) XR THUMB LT EXAM: XR THUMB LT CLINICAL HISTORY: Ostheoarthritis left CMC TECHNIQUE: 2D and realtime digital imaging was performed. CONTRAST MATERIAL: Refer to procedure report. COMPARISON: CR XR HAND LT COMPLETE from 05/20/2022 FINDINGS: Fluoroscopy was provided for Dr. Garrett in the OR. Please refer to the procedure report for compl ete details. Ka,r=0.02 mGy IMPRESSION: RADIATION DOSE DELIVERED: 0.0 0.0 0
[2024-05-16] MEDS: fentaNYL 100 MCG/2 ML VIAL IVP ×2 (15:22→15:28)
--- NOTE | 2024-05-16 15:54 | W.ANESPOSTOP ---
Postoperative Evaluation Date, Time and Location Date Performed: 05/16/24 Time Performed: 15:54 Patient Location: Day Surgery Unit Vital Signs Most Recent Imported Vital Signs: Most Recent Vital Signs Temp Pulse Resp BP Pulse Ox 36.4 C L 96 H 16 138/99 H 94 05/16/24 15:44 05/16/24 15:44 05/16/24 15:44 05/16/24 15:44 05/16/24 15:44 Pain Score Most Recent Pain Score: Most Recent Pain Score Pain Level 0 05/16/24 15:44 Assessment Mental Status: Awake (Alert & Oriented to Patient Baseline) Airway and Respiratory Function: Patent airway with normal (patient baseline) respiratory exam Cardiovascular Function: Hemodynamically Stable Hydration Status: Adequately Hydrated Nausea & Vomiting: No Nausea or Vomiting Pain: Pain is tolerable per patient Peripheral Nerve Block: Patient did not receive a nerve block
--- NOTE | 2024-05-16 16:09 | W.PM.OP ---
Operative Note Operative Note PRE-OP DIAGNOSIS: Left Thumb CMC Arthritis POST-OP DIAGNOSIS: same PROCEDURE: Left trapezial resection arthroplasty with suture suspensionplasty SURGEON: Zia Garrett ANESTHESIA TYPE: General LMA/ETT Refer to Anesthesia Record ESTIMATED BLOOD LOSS: 5 PATHOLOGY: none sent TOURNIQUET TIME: 38 COMPLICATIONS: None Patient was transported to: PACU Patient's condition: stable Indications: Kemi is a 53 year old female who has had symptoms of thumb CMC arthritis with pain and decreased mobility. Nonoperative treatment options had been trialed. Given their failure, I offered operative intervention. She had a successful trapezial resection arthroplasty on the right side. I reviewed the technical details. I reviewed the risk of the procedure to include bleeding, infection, pain, stiffness, instability, subsidence, damage to neighboring arteries, damage to the superficial radial nerve, and weakness. Despite these risks, the patient elected to proceed. Findings: There is notable arthrosis between the trapezium and the first metacarpal. There are large osteophytes around the entirety of the trapezium. Procedure Description: Kemi was greeted in the preoperative holding area. Name and surgical site were confirmed. The history and physical was completed. The consent was reviewed the patient and signed. She was taken back to the operating room. The patient was placed and monitored anesthesia care. The left was then prepped with ChloraPrep and draped in a standard fashion after a nonsterile tourniquet was placed high up onto the arm. Prophylactic antibiotics in the form of cefazolin were administered. A timeout was performed for safe surgery. The surgical site was drawn on the skin overlying the dorsal radial border of the wrist. The planned surgical field was anesthetized with 0.25% bupivacaine with epinephrine. The limb was exsanguinated and the tourniquet was inflated where it stayed for 38 minutes. A 3 cm incision was made longitudinally over the radial wrist from the level of the radial styloid to just past the base of the first metacarpal. The skin was incised only. The deep tissue and subcutaneous fat was dissected with a tenotomy scissors trying to protect branches of the superficial radial nerve. Any branches that were identified were retracted out of the way. The first compartment extensor tendons were then identified and the first extensor compartment was released. The interval between APL and EPB was identified and developed at the base of the first metacarpal. The base of the first metacarpal was palpated. A needle was placed into the joint between the first metacarpal and the trapezium. A single x-ray was used to confirm appropriate positioning. The capsule of the trapezium was then incised. The radial border of the bone was identified. Soft tissues around trapezium were dissected bluntly to allow relaxation of vital arterial structures traversing the trapezium. Using a [place] blade the capsule was elevated off the trapezium in a subperiosteal fashion. Once it appeared to have all the capsular attachments released, the trapezium was then removed using a rongeur. The wound was inspected to make sure all portions of the trapezium were removed. X-ray was used to confirm appropriate removal of all bony fragments. The wound was then thoroughly irrigated. Using a 2-0 FiberWire then performed a suture suspensionplasty. This was done by incorporating capsule and attachments of the APL at the base of the first metacarpal and creating a sling connected to the deep flexor carpi radialis tendon seen traversing deep within the wound towards the second metacarpal. This was done twice to create a crossing network of 2-0 suture. This was then tied overlying the base of the first metacarpal making sure not to over tighten and hourglass the tendons. This provided support to the first metacarpal to prevent any excessive subsidence. The tourniquet was then released. There is no significant bleeding. The capsule of the trapezium was then reapproximated with a 2-0 Vicryl. The skin was closed with subcuticular 4-0 Monocryl, reinforced with skin glue. The hand was dressed with 4 x 4's, Kerlex and RYLAN to create a soft, thumb spica splint. All counts were correct. Patient was transferred back to PACU in a stable condition. Date of Procedure: 05/16/24
== END 2024-05-16 16:35 | disposition home or self-care (01) ==
PROVIDERS: PCP Nurse Practitioner Family; Visit Provider Student in an Organized Health Care Education/Training Program
PROC: (CPT 25447; principal; 2024-05-16 13:45)
DX: M18.12 Unilateral primary osteoarthritis of first carpometacarpal joint, left hand (principal); K90.0 Celiac disease; E03.9 Hypothyroidism, unspecified; I10 Essential (primary) hypertension
CPT/HCPCS: 25447; 76000; 73140; J0665; J0690; J1100; J2405; J2704; J3010

== ENCOUNTER 2024-07-07 06:55 | Day surgery (SDC) | payer OTHER, SELFPAY ==
[2024-07-07 06:57] VITALS: BP 145/90; PULSE 92; RESP 18; TEMP 36; O2SAT 98
[2024-07-07] MEDS: Lactated Ringers 1,000 ML 80 ML IV (07:33)
--- NOTE | 2024-07-07 08:25 | ANES.PREOP_ITS ---
General Info Date of Service Date Performed: 07/07/24 Height: 5 ft 6 in Weight: 92.2 kg Body Mass Index (BMI): 32.8 Surgical Procedure: Operation Date: 07/07/24 08:20 Proposed Procedure Side Surgeon karlos Fitch MD Meds Allergies and Home Medications Allergies Allergy/AdvReac Type Severity Reaction Status Date / Time gluten Allergy Unknown Other (See Verified 07/07/24 07:10 Comment) Home Medication ?Medication ?Instructions ?Recorded ibuprofen 600 mg tablet 600 mg PO TID PRN #90 tabs 09/14/23 levothyroxine 100 mcg tablet 100 mcg PO DAILY #90 tabs 11/02/23 (Levo-T) lisinopril 20 mg tablet 20 mg PO DAILY #90 tabs 11/02/23 darifenacin 15 mg tablet,extended 15 mg PO DAILY #90 tabs 03/20/24 release 24 hr acetaminophen 500 mg tablet 500 mg PO Q6H PRN pain #60 tabs 05/16/24 bisacodyl 5 mg tablet,delayed 5 mg PO ONCE #4 tabs 06/29/24 release (Dulcolax (bisacodyl)) bupropion HCl 300 mg 24 hr tablet, See Rx Instructions .Route 06/29/24 extended release .COMPLEX #30 tabs polyethylene glycol 3350 17 17 g PO ONCE #238 grams 06/29/24 gram/dose oral powder Current Visit Medications: Current Medications Generic Name Dose Route Start Last Admin Trade Name Freq PRN Reason Stop Dose Admin Ringer's Solution 1,000 mls @ 80 mls/hr 07/07/24 06:00 07/07/24 07:33 IV 07/07/24 23:59 80 mls/hr INFUSION REINA Administration IV Miscellaneous Supplies 1 each 07/07/24 06:00 Iv Access IV 07/07/24 23:59 DIRECTED REINA Sodium Chloride 0 ml 07/07/24 06:00 Normal Saline Flush 10 Ml Syr IV 07/07/24 23:59 PRN PRN Sodium Chloride 0 ml 07/07/24 06:00 Normal Saline 10 Ml Vial IJ 07/07/24 23:59 DIRECTED PRN Sterile Water 0 ml 07/07/24 06:00 Water,Injection,Sterile 10 Ml Vial IJ 07/07/24 23:59 DIRECTED PRN PFSH Active Problems Active Problems: Problem Status Onset Code Bilateral tinnitus Acute H93.13 Neck pain on left side Acute M54.2 Cystocele with prolapse Acute N81.4 Extensor intersection syndrome of right wrist Resolved M65.831 Osteoarthritis of carpometacarpal joint of left thumb Acute M18.12 Bilateral thumb pain Acute M79.644, M79.645 Essential hypertension Acute I10 Hypothyroidism Acute E03.9 Celiac disease Acute K90.0 Medical History Medical History Depression Surgical History Surgical History Osteoarthritis of carpometacarpal joint of right thumb S/P Trapezial Arthroplasty: 09/14/2023 Reduction mammoplasty Tobacco Smoking/Tobacco Use Status: Never Passive smoking exposure: Yes Second hand exposure: Yes Alcohol Alcohol Intake: current Alcohol intake frequency: a few times a month Alcohol type: hard liquor Substance Use Substance use: Never Substance use type: does not use Prental History History 4 Para 3 Hx # Term Pregnancies Multiple births Hx # Pregnancies Ectopic pregnancies AB induced Hx Number of Living Children AB spontaneous 1 Past Pregnancies Del. Date GA/Weeks # Preg Succ Route Wgt Sex Labor Lgth Anesth esia Location [facility] 12/10/89 No Yes vaginal Female 05/06/91 No Yes vaginal Male 02/15/95 42 No Yes vaginal Male Vital Signs and Lab Results Vital Signs Most Recent Vital Signs in EMR: Most Recent Vital Signs Temp Pulse Resp BP Pulse Ox 36 C L 92 H 18 145/90 H 98 07/07/24 06:57 07/07/24 06:57 07/07/24 06:57 07/07/24 06:57 07/07/24 06:57 Lab Results Blood Type / Crossmatch: No Data to Display Complete Blood Count: No Data to Display Complete Metabolic Panel: No Data to Display Liver Function Panel: No Data to Display Coagulation Panel: No Data to Display Cardiac Panel: No Data to Display Arterial Blood Gas: No Data to Display Venous Blood Gas: No Data to Display Pancreas Panel: No Data to Display Thyroid Panel: No Data to Display Infectious Disease: No Data to Display Blood Cultures: No Data to Display Toxicology Panel: No Data to Display Panel: No Data to Display Anesthesia Assessment and Plan Anesthesia History Personal History: No History of Anesthesia Complications Family History: No Family History of Anesthesia Complications Exercise Tolerance Exercise Tolerance: Metabolic Equivalents>4 Pertinent Negatives Pertinent Negatives: No Symptoms of GERD Cardiac & Pulmonary Exam Cardiac Exam: Normal S1/S2 Heart Sounds Pulmonary Exam: Clear Bilateral Breath Sounds Implantable Cardiac Device Does patient have a Pacemaker or an ICD?: No Airway Exam Known Difficult Airway: No Mallampati Class: 2 Mouth Opening: Normal (> 3cm) Thyromental Distance: Greater than 3 cm Neck Range of Motion: Full ROM Neck Circumference: Normal Teeth Condition: Normal Dentition ASA Classification ASA Score: ASA 2 Emergency Case?: No NPO Status NPO Status: NPO Clears >2 hours, Solids >8 hours Status Status: Not Relevant due to Medical History Anesthesia Plan Resuscitation Status: Full Code Anesthesia Technique: General Anesthesia Airway Planned: Natural Airway Monitors Used: Standard Monitors
[2024-07-07 08:27] VITALS: BMI 32.8
--- NOTE | 2024-07-07 08:59 | BOWEL_PTH ---
PATIENT: Kemi Johnson LOC: [facility] U#:[id number] AGE/SX: 53/F ROOM: RE07/07/[address]: Jas Fitch : 1970 BED: DIS: 07/07/2024 SPEC #: [id number] RECD: 07/07/24 11:44 STATUS: YESENIA RE #: [id number] AMBER: 07/07/24 08:[address]: Jas Fitch DEPT: Surgical Specimen RECD BY: Amara Kirkland ENTERED: 07/07/24 11:45 SP TYPE: Bowel OTHR DR: Sherry Marks, ABDON Tissues: 1 - BIOPSY BOWEL Procedures: GROSS AND MICRO LEVEL 4 Comments: [id number]
[2024-07-07 09:10] VITALS: BP 121/69; PULSE 94; RESP 14; TEMP 36.4; O2SAT 99
--- NOTE | 2024-07-07 09:13 | W.COLOREPORT ---
Date of service: 07/07/24 Time of Service: 09:13 Colonoscopy Report Procedure Description: PROCEDURES PERFORMED: 1. Colonoscopy with cold forceps polypectomy PREOPERATIVE DIAGNOSIS: Screening colonoscopy POSTOPERATIVE DIAGNOSIS: Colon polyp SURGEON: Waleska Fitch MD INDICATION for procedure: The patient is a 53-year-old woman who has never had a colonoscopy before. No family history of colon cancer. This is her first screening. She has no symptoms of concern. FINDINGS: The terminal ileum was normal. In the cecum near the appendix was a small 2 to 3 mm polyp that I removed with cold forceps technique. No other polyps were seen. No obvious diverticular disease. There was no significant hemorrhoid disease noted. SURVEILLANCE interval/FOLLOW-UP: 3 - 10 years. If sessile serrated or villous histology, then 3 years. Otherwise 7 to 10 years. SPECIMENS: yes EBL: Minimal COMPLICATIONS: None QUALITY of prep: Excellent Procedure in detail: The patient gave written consent and was in agreement with the indications, the potential risks as well as the benefits of the procedure. They were taken to the endoscopy suite and laid in the left lateral decubitus position. A timeout was performed and anesthesia was administered which was tolerated well. I started the procedure. Digital rectal and visual examination was performed and grossly within normal limits. A well-lubricated flexible colonoscope was then introduced and passed without any notable difficulty all the way to the cecum identified by the ileocecal valve and the appendiceal orifice. The terminal ileum was intubated and looked normal. The scope was then slowly withdrawn with the above-noted findings. The patient tolerated the procedure well and was taken to the PACU in hemodynamically stable condition.
--- NOTE | 2024-07-07 09:15 | W.PM.DSUDISC ---
Date of service: 07/07/24 Discharge Plan Disposition Patient Disposition: Home Condition: Good Discharge Details Attending Provider: Jas Fitch Primary Care Provider: Sherry Marks Home Meds and New Rx's Prescriptions: No Action lisinopril 20 mg tablet 20 mg PO DAILY Qty: 90 3RF levothyroxine [Levo-T] 100 mcg tablet 100 mcg PO DAILY Qty: 90 4RF bisacodyl [Dulcolax (bisacodyl)] 5 mg tablet,delayed release (DR/EC) 5 mg PO ONCE Qty: 4 0RF Rx Instructions: Take per colonoscopy instructions provided by ordering providers office polyethylene glycol 3350 17 gram/dose powder 17 g PO ONCE Qty: 238 0RF Rx Instructions: Take per colonoscopy instructions provided by ordering providers office darifenacin 15 mg tablet extended release 24 hr 15 mg PO DAILY Qty: 90 3RF Rx Instructions: take one tablet daily/administer with fluid bupropion HCl 300 mg tablet extended release 24 hr See Rx Instructions .ROUTE .COMPLEX Qty: 30 12RF Dose Instruction: TAKE ONE TABLET BY MOUTH EVERY MORNING Rx Instructions: TAKE ONE TABLET BY MOUTH EVERY MORNING acetaminophen 500 mg tablet 500 mg PO Q6H PRN (Reason: pain) Qty: 60 2RF ibuprofen 600 mg tablet 600 mg PO TID PRNQty: 90 3RF Discharge Instructions Additional Instructions: FINDINGS: A small polyp was found and removed from your colon today. It is nothing to worry about. This is why we do the colonoscopies. Most likely you will need to do another colonoscopy in 7 to 10 years. We will call you with those results from pathology in the next couple of weeks. Activity:: Activity as Tolerated Diet:: As Tolerated
[2024-07-07 09:45] VITALS: BP 138/88; PULSE 93; RESP 18; TEMP 36.6; O2SAT 99
--- NOTE | 2024-07-07 16:10 | W.ANESPOSTOP ---
Postoperative Evaluation Date, Time and Location Date Performed: 07/07/24 Time Performed: 09:11 Patient Location: Day Surgery Unit Vital Signs Most Recent Imported Vital Signs: Most Recent Vital Signs Temp Pulse Resp BP Pulse Ox 36.6 C 93 H 18 138/88 99 07/07/24 09:45 07/07/24 09:45 07/07/24 09:45 07/07/24 09:45 07/07/24 09:45 Pain Score Most Recent Pain Score: Most Recent Pain Score Pain Level 0 07/07/24 09:45 Assessment Mental Status: Arousable with meaningful communication Airway and Respiratory Function: Patent airway with normal (patient baseline) respiratory exam Cardiovascular Function: Hemodynamically Stable Hydration Status: Adequately Hydrated Nausea & Vomiting: No Nausea or Vomiting Pain: Pt. Denies Any Pain Peripheral Nerve Block: Patient did not receive a nerve block
== END 2024-07-07 10:07 | disposition home or self-care (01) ==
PROVIDERS: PCP Nurse Practitioner Family; Visit Provider Student in an Organized Health Care Education/Training Program
PROC: 0DJD8ZZ Inspection of Lower Intestinal Tract, Via Natural or Artificial Opening Endoscopic (ICD-10-PCS; CPT 45378; principal; 2024-07-07 08:15)
DX: Z12.11 Encounter for screening for malignant neoplasm of colon (principal); I10 Essential (primary) hypertension; K63.5 Polyp of colon
CPT/HCPCS: 45380; 88305; J2003; J2704

== ENCOUNTER 2024-11-23 01:25 | Outpatient (CLI) | payer BC, SELFPAY ==
[2024-11-23 07:42] LABS: ALT 43 U/L (14-59); AST 25 U/L (15-37); Albumin 4.1 g/dL (3.4-5.0); Alkaline Phosphatase 91 U/L (46-116); Anion Gap 6.9 mmol/L (3-11); BUN 15 mg/dL (7-18); Bilirubin, Total 0.4 mg/dL (0.2-1.0); CO2 31.1 mmol/L (21.0-32.0); Calcium 9.2 mg/dL (8.5-10.1); Calculated LDL 100 mg/dL (<100); Chloride 103 mmol/L (98-107); Cholesterol 163 mg/dL (<200); Estimated GFR 86.96 (mL/min/1.73m2); Glucose 116 mg/dL (74-106); HDL Cholesterol 52 mg/dL (>or=50); Potassium 4.2 mmol/L (3.5-5.1); Sodium 141 mmol/L (136-145); TSH (W/Ref FT4) 1.86 uIU/mL (0.36-3.74); Total Protein 7.7 g/dL (6.4-8.2); Triglyceride 57 mg/dL (<150)
== END 2024-11-23 01:26 | disposition home or self-care (01) ==
PROVIDERS: PCP Nurse Practitioner Family; Visit Provider Nurse Practitioner Family
DX: Z00.00 Encounter for general adult medical examination without abnormal findings (principal); F32.A Depression, unspecified; I10 Essential (primary) hypertension; E03.9 Hypothyroidism, unspecified; K90.0 Celiac disease
CPT/HCPCS: 36415; 80053; 80061; 84443

== ENCOUNTER 2024-12-05 02:55 | Outpatient (CLI) | payer BC, SELFPAY ==
--- NOTE | 2024-12-05 06:30 | DI.MAMMO_ITS ---
Exam(s) MAMMO SCREENING EXAM: MAMMO SCREENING CLINICAL HISTORY: screening, Z12.39. TECHNIQUE: Bilateral full field digital CC and MLO mammographic images were obtained with 3D tomosynthesis and utilizing computer aided detection (CAD). COMPARISON: Prior mammograms dating back to 2017 were reviewed. FINDINGS: There has been no significant change in the appearance and distribution of the fibroglandular tissue. Asymmetric tissue posteriorly in the right breast is unchanged. Small nodule anteriorly in the right breast also remains stable from multiple prior mammograms. Small benign-appearing microcalcification group in the left breast also remain stable. There are no new spiculated masses nor malignant appearing microcalcification groups. There is no significant architectural distortion nor skin thickening-retraction. IMPRESSION: Stable benign findings. No radiographic evidence of malignancy. BI-RADS Category 1 - Negative Breast Density - Category B - There are scattered areas of fibroglandular density. Breast density Category C or D implies that the patient has dense breast tissue. Dense breast tissue can make it harder to find cancer on a mammogram. Dense breast tissue is also associated with an increased risk of breast cancer. This information about the result of the mammogram report was provided to the patient to raise their awareness. Use this report when you speak with the patient about their risks for breast cancer, which includes their family history. At that time, you may recommend additional screening tests (Ultrasound or MRI) as these tests may add significant information. A negative radiographic report should not delay biopsy if a dominant or clinically suspicious mass is present. Up to ten percent of cancers are not identified on mammography. A negative report may reinforce clinical impression. Adenosis and dense breasts may obscure an underlying neoplasm. False positive reports average 6 to 10%. Patient will receive a letter notifying them of these results.
== END 2024-12-05 03:15 ==
LOC: DI 02:55
PROVIDERS: PCP Nurse Practitioner Family; Visit Provider Nurse Practitioner Family
DX: Z12.31 Encounter for screening mammogram for malignant neoplasm of breast (principal); R92.323 Mammographic fibroglandular density, bilateral breasts
CPT/HCPCS: 77063; 77067